=== PATIENT | male | born 1985 | race American Indian/Alaskan Native ===

== ENCOUNTER 2019-01-03 13:47 | Emergency (ER) | payer OTHER, BC ==
[~2019-01-03] VITALS: Ht 170.2 cm; Wt 63.5 kg
[2019-01-03] MEDS ORDERED: ULTRAM50 MG PO (16:34)
== END 2019-01-03 16:50 | disposition home or self-care (01) ==
LOC: ED 13:47
DX: M54.5 Low back pain (principal); F17.200 Nicotine dependence, unspecified, uncomplicated; Z88.8 Allergy status to other drugs, medicaments and biological substances; W10.9XXA Fall (on) (from) unspecified stairs and steps, initial encounter
CPT/HCPCS: 71045; 72100; 73080; 99283-25

== ENCOUNTER 2020-11-01 08:52 | Emergency (ER) | payer BC, OTHER ==
[~2020-11-01] VITALS: Ht 170.2 cm; Wt 63.5 kg
[~2020-11-01 08:52] MED LIST: ULTRAM50 MG PO
== END 2020-11-01 10:12 | disposition home or self-care (01) ==
LOC: ED 08:52
DX: K08.89 Other specified disorders of teeth and supporting structures (principal)